=== PATIENT | female | born 1940 | race Caucasian/White ===

== ENCOUNTER → 2020-06-02 | Outpatient (CLI) | payer MEDICARE ==
--- NOTE | 2020-06-02 16:16 | KCIC ---
LUMBAR SPINE WO CONTRAST History: Reason: LOW BACK PAIN W/RT RADICULOPATHY / Spl. Instructions: / History: Symptoms for 3 months. Technique: Multiplanar, multi sequential MR imaging was performed of the lumbar spine. Comparison: May 01, 2011 Findings: Normal vertebral body height and alignment. No fracture. Mild degenerative endplate edema L3-L4. Conus terminates at the normal location. No evidence of nerve root clumping. Sacral Tarlov cysts. Cystic and solid partially imaged left renal mass measures approximately 6.8 x 5.1 cm. L1-L2: Small disc bulge. Mild facet arthropathy. No canal or neuroforaminal narrowing. L2-L3: Broad-based disc bulge. Moderate facet arthropathy. Mild subarticular recess narrowing. No canal narrowing. Mild bilateral neuroforaminal narrowing. L3-L4: Broad-based disc bulge. Advanced facet arthropathy. Mild to moderate canal narrowing. Subarticular recess narrowing, right greater than left. Mild to moderate right and mild left neuroforaminal narrowing. L4-L5: Broad-based disc bulge. Advanced facet arthropathy. No canal narrowing. Mild left subarticular recess narrowing. Mild right and moderate left neuroforaminal narrowing. L5-S1: Broad-based disc bulge. Advanced facet arthropathy. No canal narrowing. Moderate bilateral neuroforaminal narrowing. Impression: 1. Large cystic and solid left renal mass partially imaged, concerning for malignancy. Recommend CT with contrast renal mass protocol. 2. Moderate multilevel lumbar spondylosis most prominent L3-L4 with mild to moderate canal narrowing. 3. Multilevel neuroforaminal narrowing most prominent L5-S1. Message was left with Dr. Monsalve's office at 4:08 PM on 06/02/2020. Electronically signed by: Jorge Miguel DO (06/02/2020 4:13 PM) [id number]
== END | disposition home or self-care (01) ==
LOC: KCIC MRI 12:24
PROVIDERS: ATTEND Family Medicine
DX: M47.27 Other spondylosis with radiculopathy, lumbosacral region (principal); M48.07 Spinal stenosis, lumbosacral region; N28.1 Cyst of kidney, acquired; R29.898 Other symptoms and signs involving the musculoskeletal system
CPT/HCPCS: 72148

== ENCOUNTER → 2021-08-20 | Outpatient (CLI) | payer MEDICARE ==
[~2021-08-20] MED LIST: ALPR0.254 PO; AMLO-187 PO; ASPI-630 PO; CELE100C PO; FLUT16SP NS; GADOTERATE 7.5 MMOL/15ML VIAL. IVP ONE; LISI10TA16 PO; MECL12.582 PO; PRAV10TA2 PO; TEMA7.5C PO
--- NOTE | 2021-08-20 14:08 | KCIC ---
EXAMINATION: Magnetic resonance imaging (MRI) of the lumbar spine within without contrast 08/20/2021 1 1:18 AM HISTORY: Stenosis, spondylosis. Worsening low back pain. Worsening is when sitting and standing long. TECHNIQUE: Multiplanar multi-weighted MRI of the lumbar spine was performed with and without intraven ous contrast using the standard lumbar spine protocol. Contrast information: Gadolinium based contrast COMPARISON: MRI lumbar spine 06/02/2020 FINDINGS: Alignment lumbar spine is normal. Vertebral body heights are maintained. There is moderate disc heigh t loss at L3-L4 and L4-L5 with associated disc desiccation. Modic type II endplate degenerative stein es identified anteriorly at L3-L4, similar to the prior examination from 06/02/2020. Disc desiccation with mild disc height loss identified at L2-3 and L5-S1. Conus medullaris terminates at L1. Distal sp inal cord signal intensity is normal in all sequences. Abdominal aorta is normal in caliber. Left nep hrectomy changes are suspected. Right kidney is normal. No suspicious intraperitoneal abnormality. Ri ght S2 Tarlov cyst measures 1.3 cm. No suspicious enhancement is identified. T12-L1: Disc is normal in configuration. Mild left facet arthropathy. No neuroforaminal or spinal can al stenosis. Findings are stable. L1-L2: Disc is normal in configuration. Mild facet arthropathy. No neuroforaminal or spinal canal bernard nosis. Findings are stable. L2-3: There is a disc bulge asymmetric to the left. Mild facet arthropathy ligamentum flavum infoldin g. Moderate left and mild right neuroforaminal stenosis. Findings are stable. L3-L4: There is a circumferential disc bulge with right foraminal annular fissure. Moderate facet art hropathy ligamentum flavum infolding. Moderate bilateral neuroforaminal stenosis. Moderate spinal can al stenosis. There is narrowing the right lateral recess. Findings are stable. L4-L5: There is a circumferential disc bulge asymmetric to the left. Moderate left and moderate facet arthropathy. Severe left and moderate right neuroforaminal stenosis. Findings are stable. Right part ial hemilaminectomy changes are present without significant spinal canal stenosis. L5-S1: Circumferential disc bulge. Moderate facet arthropathy. Moderate left and mild right neurofora ester stenosis. No significant spinal canal stenosis. IMPRESSION: Mild to moderate degenerative changes of the lumbar spine are present as described in detail above. Electronically signed by: Kylie Enciso MD (08/20/2021 2:06 PM) [id number]
== END ==
LOC: KCIC MRI 11:11
PROVIDERS: ATTEND Neurological Surgery
DX: M47.817 Spondylosis without myelopathy or radiculopathy, lumbosacral region (principal); M51.27 Other intervertebral disc displacement, lumbosacral region; M47.815 Spondylosis without myelopathy or radiculopathy, thoracolumbar region; M48.07 Spinal stenosis, lumbosacral region
CPT/HCPCS: 72158; 82565; A9575

== ENCOUNTER → 2021-09-24 | Outpatient (CLI) | payer MEDICARE ==
[~2021-09-24] MED LIST changes: +CALC-71 PO; +CYAN-25 PO; +DOCU50CA9 PO; -GADOTERATE 7.5 MMOL/15ML VIAL. IVP ONE; +HYDR-2765 PO; +LISI1TAB39 PO; +METH-562 PO; +OMEG1CAP38 PO
--- NOTE | 2021-09-24 15:26 | EKG ---
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
[2021-09-24 16:12] LABS: BASO # 0.1 x10^3/uL (0.0-0.2); BASO % 1 % (0-3); EOS # 0.2 x10^3/uL (0.0-0.7); EOS % 2 % (0-3); HEMATOCRIT 41.2 % (36.0-47.0); HEMOGLOBIN 13.7 g/dL (12.0-15.5); LYMPH # 2.3 x10^3/uL (1.0-4.8); LYMPH % 28 % (24-48); MEAN CORPUSCULAR HEMOGLOBIN 31 pg (25-35); MEAN CORPUSCULAR HGB CONC 33 g/dL (31-37); MEAN CORPUSCULAR VOLUME 91 fL (79-100); MONO # 0.8 x10^3/uL (0.0-1.1); MONO % 10 % (0-9); NEUT # 4.8 x10^3/uL (1.8-7.7); NEUT % 59 % (31-73); PLATELET COUNT 222 x10^3/uL (140-400); RED BLOOD COUNT 4.51 x10^6/uL (3.50-5.40); RED CELL DISTRIBUTION WIDTH 13.5 % (11.5-14.5); WHITE BLOOD COUNT 8.1 x10^3/uL (4.0-11.0)
[2021-09-24 17:49] LABS: ALBUMIN 3.9 g/dL (3.4-5.0); ALBUMIN/GLOBULIN RATIO 1.1 (1.0-1.7); CALCIUM 9.3 mg/dL (8.5-10.1); CREATININE 1.2 mg/dL (0.6-1.0); GFR 43.3; POTASSIUM 3.6 mmol/L (3.5-5.1); TOTAL BILIRUBIN 0.3 mg/dL (0.2-1.0); TOTAL PROTEIN 7.3 g/dL (6.4-8.2)
== END ==
LOC: SURGPAT 13:55
PROVIDERS: ATTEND Neurological Surgery
DX: Z01.818 Encounter for other preprocedural examination (principal); M54.16 Radiculopathy, lumbar region; M48.062 Spinal stenosis, lumbar region with neurogenic claudication
CPT/HCPCS: 36415; 80053; 85025; 87641; 93005

== ENCOUNTER 2021-10-03 10:33 | Observation (INO) | payer MEDICARE ==
[2021-09-26 17:09] VITALS: BP 165/79
--- NOTE | 2021-10-02 16:39 | PREOP HP ---
DATE OF SERVICE: 10/03/2021 PREOP HISTORY AND PHYSICAL HISTORY OF PRESENT ILLNESS: The patient is a pleasant 81-year-old who is having difficulty with low back pain and pain that radiates to her buttocks and both of her legs along with cramping. The right side is worse than the left. She said in the last three months the problem has worsened. She rates her pain 6/10. The problem is intermittent. Occasionally, the pain is severe and other times it is not as severe. She has not fallen. She has had a number of lumbar surgeries, one by me 10 years ago. She did well from that surgery. She has also had cervical surgery in the past. CURRENT MEDICATIONS: Lisinopril, Celebrex, amlodipine, alprazolam, pravastatin, meclizine, fluticasone, temazepam, fish oil, calcium, vitamin E, vitamin B. aspirin. PAST MEDICAL HISTORY: Arthritis, cancer, hypertension, kidney disease. SURGICAL HISTORY: Cataract, hysterectomy, nephrectomy, lumbar microdiskectomy, cervical surgery. SOCIAL HISTORY: , nonsmoker. Drinks alcohol 1-2 times per month. FAMILY HISTORY: Alzheimer disease, cancer, diabetes, brain tumor, hypertension. ALLERGIES: CODEINE. REVIEW OF SYSTEMS: A 12-point review of systems was performed and is noncontributory except that mentioned above. PHYSICAL EXAMINATION: GENERAL: Alert, pleasant, in no acute distress. HEENT: Head is normocephalic, atraumatic. SKIN: Warm and dry, well healed lumbar incision. MUSCULOSKELETAL: Lumbar paraspinal muscle bulk is normal, restricted range of motion of the lumbar spine, [id number] tenderness of the lower lumbar spine with palpation, normal range of motion of the lower extremities bilaterally. EXTREMITIES: No clubbing, cyanosis or edema. NEUROLOGIC: Alert and oriented x3. Strength is 5/5 in the lower extremities bilaterally. Sensory was intact to light touch in the lower extremities bilaterally, reflexes were present and symmetric in the lower extremities bilaterally, negative straight leg raising bilaterally, normal gait. IMAGING: I reviewed her lumbar imaging. There are postoperative changes at L4-L5 and potentially at L3-L4. There is a moderate amount of lumbar stenosis at L3-L4. This is due especially to hypertrophic facet disease, which is more prominent on the right side. There is also marked narrowing of the right lateral recess. ASSESSMENT AND PLAN: We spoke about treatment options. At this point, I recommended physical therapy or steroid injections. She is not interested in those at all. She says the problem has been progressive and is interfering with all of her activities. She would like to strongly consider surgery. I did discuss that possibility with her. For this condition I would perform a right direct laminectomy at L3-L4. I spoke with her about the surgery and the risk and the expected postoperative course. I did explain that this was a reoperation. She understands and would like to proceed. KASSY DR: Stephon TID: [id number] JAMES
[~2021-10-03] VITALS: Ht 157.5 cm; Wt 74.0 kg
[2021-10-03] VITALS (9 sets, daily range): BP systolic 120–178; BP diastolic 48–81
[~2021-10-03 10:33] MED LIST changes: +BUPIVACAINE-EPI 0.5% 30 ML VIAL KIT. ONE; +GELATIN SPONGE SIZE 100. ONE; +GLYCOPYRROLATE 1 MG/5 ML VIAL. ONE; -HYDR-2765 PO; +HYDROmorphone 2 MG/ML VIAL IVP PRN; +IV RINGERS,LACTATED 1000ML 1,000 ML IV SCH; +KETOROLAC 60 MG/2 ML VIAL. ONE; +LIDOCAINE 2% PF 5 ML VIAL. ONE; -METH-562 PO; +PHENYLEPHRINE in 0.9% NACL PF 1 MG/10 ML SYRINGE. IV ONE; +PROCHLORPERAZINE 10 MG/2 ML VIAL. IVP PRN; +PROPOFOL 10 MG/ML (20ML) VIAL. IV ONE; +REMIFENTANIL 2 MG VIAL. IV ONE; +ROCURONIUM 50 MG/5 ML VIAL. ONE; +THROMBIN TOPICAL 20,000 UNIT SPRAY.SYRN KIT TP ONE; +ceFAZolin SODIUM 1 GM in IV NORMAL SALINE 1000ML BAG 1,000 ML IRR ONE; +ePHEDrine PF IN SALINE 50 MG/10 ML SYRINGE. IV ONE; +fentaNYL PF VIAL 100 MCG/2 ML VIAL IVP PRN; +fentaNYL PF VIAL 100 MCG/2 ML VIAL ONE
[2021-10-03] MEDS ORDERED: ONDANSETRON PF 4 MG/2 ML VIAL. ONE (11:24)
[2021-10-03] MEDS ORDERED: DEXAMETHASONE SOD PHOS 4 MG/ML VIAL ONE (11:24)
[2021-10-03] MEDS ORDERED: NEOSTIGMINE METHYLSULFATE 5 MG/5 ML SYRINGE. ONE (13:05)
[2021-10-03] MEDS ORDERED: TEMAZEPAM 7.5 MG CAPSULE PO PRN (15:15)
[2021-10-03] MEDS ORDERED: MAGNESIUM HYDROXIDE 2,400 MG/30 ML ORAL.SUSP. PO PRN (15:30)
[2021-10-03] MEDS ORDERED: fentaNYL PF VIAL 100 MCG/2 ML VIAL IVP PRN (15:30)
[2021-10-03] MEDS ORDERED: IV NORMAL SALINE 1000ML BAG 1,000 ML IV SCH (15:30)
[2021-10-03] MEDS ORDERED: diphenhydrAMINE HCL 25 MG CAPSULE PO PRN (15:30)
[2021-10-03] MEDS ORDERED: CALCIUM CARBONATE 500 MG TAB.CHEW PO PRN (15:30)
[2021-10-03] MEDS ORDERED: NALOXONE 0.4 MG/ML VIAL. IV PRN ×2 (15:30)
[2021-10-03] MEDS ORDERED: 0.9 % SODIUM CHLORIDE 10 ML DISP.SYRIN. IV PRN (15:30)
[2021-10-03] MEDS ORDERED: MAG HYDROX/ALUMINUM HYD/SIMETH 30 ML ORAL.SUSP PO PRN (15:30)
[2021-10-03] MEDS ORDERED: HYDROcodone/APAP 7.5/325MG 1 TAB TABLET PO PRN (15:30)
[2021-10-03] MEDS ORDERED: ACETAMINOPHEN 325 MG TABLET. PO PRN (15:30)
--- NOTE | 2021-10-03 16:30 | NUR ---
received from pacu. she is alert and oriented x4 and can acosta. she has good sensation, pulses and motion bilateral lower extremities. dressing to back is clean and dry. refused ice Im cold extra blankets given. ambulated to bathroom and voided large amount . returned to bed. she is rating her pain a 6; medicated with fentanyl family at bedside. history completed.
[2021-10-03] MEDS: POTASSIUM CL 20MEQ D5-0.45NACL 1,000 ML IV SCH (17:23)
[2021-10-03] MEDS: MECLIZINE HCL 12.5 MG TABLET. PO PRN (18:06)
[2021-10-03] MEDS: DOCUSATE SODIUM 100 MG CAPSULE. PO SCH (20:12)
[2021-10-03] MEDS: HYDROcodone/APAP 7.5/325MG 1 TAB TABLET PO PRN (20:13)
[2021-10-03] MEDS ORDERED: DOCUSATE SODIUM 100 MG CAPSULE. PO SCH (21:00)
[2021-10-03] MEDS ORDERED: TEMAZEPAM 15 MG CAPSULE PO PRN (21:00)
[2021-10-04] MEDS: METHOCARBAMOL 750 MG TABLET PO PRN ×2 (01:01→12:50)
[2021-10-04 02:10] VITALS: BP 115/56
[2021-10-04] MEDS: HYDROcodone/APAP 7.5/325MG 1 TAB TABLET PO PRN ×2 (02:49→08:48)
[2021-10-04] MEDS: POTASSIUM CL 20MEQ D5-0.45NACL 1,000 ML IV SCH (04:50)
[2021-10-04 06:24] VITALS: BP 105/46
[2021-10-04] MEDS: DOCUSATE SODIUM 100 MG CAPSULE. PO SCH (08:45)
[2021-10-04 08:49] VITALS: BP 122/52
[2021-10-04] MEDS ORDERED: ASPIRIN CHEWABLE 81 MG TABLET. PO SCH (09:00)
[2021-10-04] MEDS ORDERED: CYANOCOBALAMIN (VITAMIN B-12) 1,000 MCG TABLET. PO SCH (09:00)
[2021-10-04] MEDS ORDERED: LISINOPRIL 20 MG TABLET PO SCH (09:00)
[2021-10-04] MEDS ORDERED: OMEGA-3 FATTY ACIDS/FISH OIL 1,000 MG CAPSULE. PO SCH (09:00)
[2021-10-04] MEDS ORDERED: hydroCHLOROthiazide 25 MG TABLET PO SCH (09:00)
[2021-10-04] MEDS ORDERED: ATORVASTATIN CALCIUM 20 MG TABLET PO SCH (09:00)
[2021-10-04] MEDS ORDERED: CELECOXIB 100 MG CAPSULE. PO SCH (09:00)
[2021-10-04] MEDS ORDERED: CALCIUM CARB/VIT D3 500/200 TABLET. PO SCH (09:00)
[2021-10-04] MEDS ORDERED: FLUTICASONE 50MCG/NASAL SPRAY 16GM BOTTLE. NS SCH (09:00)
[2021-10-04] MEDS ORDERED: METH-562 PO (09:46)
[2021-10-04] MEDS ORDERED: HYDR-2765 PO (09:46)
--- NOTE | 2021-10-04 09:47 | DISCH ---
DISCHARGE INSTRUCTIONS Condition on Discharge Condition on Discharge: Stable Activity After Discharge Activity Instructions for Disc: Activity as tolerated, Avoid exertion Other activity instructions: no driving for a week Bathing Instructions: Shower-keep dressing dry Lifting Instructions after Dis: No heavy lifting, No pulling or pushing, Do not lift >10 pounds Diet after Discharge Additional Diet Restrictions: resume home diet Wound Incision Care Wound/Incision Care: Ice to area for comfort Other wound/incision instructi: may remove dressing in 48 hours if dry, no soaking Contacting the DRRaman after DC Call your doctor for: Concerns you may have Follow-Up Follow up with: Dr. Seo's nurse in 2 weeks [phone] DALLAS SEO MD Oct 04, 2021 09:47
[2021-10-04] MEDS: MECLIZINE HCL 12.5 MG TABLET. PO PRN (12:50)
--- NOTE | 2021-10-04 13:11 | NUR ---
Patient left around 1300 with her daughter. Discharge education gone over by this nurse, PT, and the CARAMEL CUTTER MACHINE Sara Guerra. Dressing to lower back is CDI with extra dressing given to the patient if needed. IVs discontinued without complications. Patient left with all her belongings. No concerns noted at discharge.
--- NOTE | 2021-10-05 11:53 | OP ---
DATE OF SURGERY: 10/03/2021 PREOPERATIVE DIAGNOSIS: Lumbar spinal stenosis L3-L4 with right greater than left lumbar radiculopathy. POSTOPERATIVE DIAGNOSIS: Lumbar spinal stenosis, L3-L4 with right greater than left lumbar radiculopathy. OPERATION PERFORMED: Right direct laminectomy L3-L4 with lumbar microdiscectomy L3-L4, right. The operation was done with EMG monitoring, SSEP monitoring, fluoroscopy, and microscopic dissection. SPECIMEN: Disc and decompression. SURGEON: Lance Snider M.D. VENEER LAYER: MILTON Delgado assisted with the surgery. She assisted with the exposure, the microdecompression, discectomy as well as closure. OPERATIVE INDICATIONS: The patient is a pleasant 81-year-old who developed intractable right greater than left leg pain, which has been slowly progressive over months. She has had previous surgery in the past on the lumbar spine. After evaluating her and reviewing the films, I felt that a right direct laminectomy would be the safest most prudent course. I explained to her the surgery and the risks. She understood she wished to go ahead. DESCRIPTION OF PROCEDURE: Following general endotracheal anesthesia, the patient was positioned prone on the Danyel table. Lumbar region prepped and draped in the standard fashion. ISA hose and AV impulse boots were applied for DVT prophylaxis. The microscope was draped, fluoroscopy was draped and brought into the field and monitoring was established. Ancef 2 grams was given less than one hour prior to initiation of the surgery. Using fluoroscopic guidance, an incision was made directly over the L3-L4 interspace. I did incorporate much of her previous incision. I dissected down through skin and subcutaneous tissue, reflected the paraspinal muscles and placed a [place] microdisk retractor. I confirmed my position fluoroscopically. I brought in the microscope and burred down a generous hemilaminotomy and then tilted the patient away and drilled across the midline medially. I removed the fatty epidural tissue from the midline and then peeled back ligament medial to lateral and then I drilled and performed a partial foraminotomy, which I enlarged with Kerrisons. The ligament removed and the dura was pushed back nicely and was well decompressed, especially after the foraminotomy. I gently retracted the dura medially. There was a bulging disc, which was firm, but I felt that I was able to get in. I incised the annulus and ligament with a 11 blade and removed much of the subligamentous disc and decompressed the region very well. I explored carefully and I felt that I had excellent decompression. I did use small amounts of bone wax as well as bipolar cautery where necessary and I irrigated copiously. I then closed the wound in layers after removing the retractor, and obtained excellent hemostasis in the muscle. The skin was closed with a 4-0 subcuticular stitch. I felt the surgery went very well. FROYLAN/LARA DR: Eugenia TID: [id number] JAMES
--- NOTE | 2021-10-05 18:14 | PATHOLOGY ---
[facility] Accession Number: [id number] . 01 Material submitted: . vertebral column - LUMBAR DECOMPRESSION OF DISC . 01 Clinical history: . LUMBAR STENOSIS, RADICULOPATHY LUMBAR MICRODECOMPRESSION L3-4 . 02 Diagnosis: Segments of fibrocartilaginous tissue, lumbar decompression and disc: - Degenerative changes. (JPM:ksenia; 10/05/2021) S 10/05/2021 1504 Local . 02 Comment: There is no evidence of an acute inflammatory process or malignancy. (JPM:ksenia; 10/05/2021) . 02 Electronically signed: . Michel Key MD, Pathologist NPI- [id number] . 01 Gross description: . The specimen is received in formalin, labeled "Francine Hanks, lumbar decompression of disc". Received are multiple segments of pale portillo to pink-portillo fibrous tissue admixed with fragments of gritty bone measuring 1.0 x 0.5 x 0.1 cm in aggregate dimensions. The specimen is submitted healthcare representative lesion cassette A1, following light decalcification. ([facility]; 10/04/2021) [facility] 10/04/2021 1655 Local . 02 Pathologist provided ICD-10: M99.73, M54.10 . 02 CPT . 306003, [id number] Specimen Comment: A courtesy copy of this report has been sent to [phone], [phone] Specimen Comment: [id number] Specimen Comment: Report sent to / DR MCINTYRE Specimen Comment: A duplicate report has been generated due to demographic updates. Performed at: 01 [facility] [address], [place] [id number] MD Maxwell Stanley MD Phone: [phone] Performed at: 02 [facility] [address], [place] [id number] MD Michel Key MD Phone: [phone]
== END 2021-10-04 13:05 | disposition home or self-care (01) ==
LOC: SURG 10:33 → 4 SOUTHEST 15:17
PROVIDERS: ADMIT Neurological Surgery; ATTEND Neurological Surgery
DX: M48.061 Spinal stenosis, lumbar region without neurogenic claudication (principal); I10 Essential (primary) hypertension; M54.16 Radiculopathy, lumbar region; Z90.5 Acquired absence of kidney; Z90.710 Acquired absence of both cervix and uterus; Z98.49 Cataract extraction status, unspecified eye
CPT/HCPCS: 63047; 63048; 96374; 97116; 97162; 97530; A4364; A4930; A6254; A6258; G0378; G0379; J0690; J1100; J1885; J2370; J2405; J2704; J2710; J3010; J3480; J3490; J7030; J8597; 76000; 88304; 88311; A4657